=== PATIENT | female | born 1980 | race Native Hawaiian/Other Pacific Islander ===

== ENCOUNTER → 2017-07-15 | Outpatient (CLI) | payer BC ==
--- NOTE | 2017-07-15 19:25 | DIAGNOSTIC IMAGING REPORT ---
CHEST 2 VIEWS ROUTINE CLINICAL HISTORY: Cough and fever. COMPARISON STUDY: No previous studies for comparison. FINDINGS: Lung volumes are normal. No pneumothorax or pleural effusion is present. There is mild left lower lung opacity. Right lung is clear. There is no cavitation. Pulmonary vascularity is normal. Cardiomediastinal silhouette is normal. IMPRESSION: Mild left lower lung airspace opacity. Given the clinical history, this likely reflects pneumonia although atelectasis could appear similar. Post treatment radiographs to ensure resolution are recommended. Electronically signed by: Suleman Kimbrough M.D. 07/15/2017 7:24 PM Dictated Date/Time: 07/15/2017 7:23 PM
== END | disposition home or self-care (01) ==
LOC: C.RAD 18:40
PROVIDERS: ATTEND Internal Medicine
DX: R50.9 Fever, unspecified (principal); R05 Cough; R91.8 Other nonspecific abnormal finding of lung field